=== PATIENT | male | born 1980 | race Hispanic/Latino ===

== ENCOUNTER → 2025-01-15 | Outpatient (CLI) | payer OTHER ==
--- NOTE | 2025-01-15 16:20 | HMCIMG ---
EXAM: CT heart saver, Promotional CLINICAL HISTORY: HEART SAVER CONTRAST: None. COMPARISON: None provided. FINDINGS: TABLE MOUNTAIN VESSELS:- Artery: Calcium score Left main coronary- 0.0 Left anterior descending-12.7 Left circumflex-0.0 Right main coronary-1.5 Total-14.2 Valves:- Aortic valve calcification- no Mitral valve calcification- no Tricuspid valve calcification- no IMPRESSION: 1. Coronary artery calcium score of 14.2 which corresponds to the 84th percentile. [facility]
== END | disposition home or self-care (01) ==
LOC: RAH 11:30
PROVIDERS: ATTEND Internal Medicine Cardiovascular Disease
DX: Z13.6 Encounter for screening for cardiovascular disorders (principal)
CPT/HCPCS: 75571